=== PATIENT | female | born 1970 | race Caucasian/White ===

== ENCOUNTER 2023-02-23 07:11 | Outpatient (CLI) | payer OTHER, SELFPAY ==
--- NOTE | 2023-02-23 07:27 | W.ANESCHARGE ---
Anesthesia Charges Start Date/Time Anesthesia Start Date: 02/23/23 Anesthesia Start Time: 08:28 Stop Date/Time Anesthesia Stop Date: 02/23/23 Anesthesia Stop Time: 08:55
--- NOTE | 2023-02-23 08:59 | W.ANESCHARGE ---
Anesthesia Charges Start Date/Time Anesthesia Start Date: 02/23/23 Anesthesia Start Time: 08:28 Stop Date/Time Anesthesia Stop Date: 02/23/23 Anesthesia Stop Time: 08:55
== END 2023-02-23 07:12 | disposition home or self-care (01) ==
LOC: OP CLINIC 07:12
PROVIDERS: PCP Internal Medicine; Visit Provider Surgery
DX: Z12.11 Encounter for screening for malignant neoplasm of colon (principal); K63.5 Polyp of colon; Z80.0 Family history of malignant neoplasm of digestive organs
CPT/HCPCS: 00811; 45385; 88305; J2704

== ENCOUNTER 2023-04-13 14:26 | Outpatient (CLI) | payer OTHER, SELFPAY ==
--- NOTE | 2023-04-13 14:00 | CRLHL7_ITS ---
For Patients: As a result of the Century Cures Act, medical imaging exams and procedure reports are released immediately into your electronic medical record. You may view this report before your referring provider. If you have questions, please contact your health care provider. BILATERAL SCREENING MAMMOGRAM WITH COMPUTER-AIDED DETECTION AND TOMOSYNTHESIS TECHNIQUE: CC and MLO views were obtained. These mammographic images have been obtained using full-field digital technique. These mammographic images were interpreted with the benefit of computer-aided detection. Breast Tomosynthesis was used in this interpretation. COMPARISON FILM: 04/02/22, 11/13/20, 03/29/19. FINDINGS: The breasts are heterogeneously dense, which may obscure small masses IMPRESSION: There is no radiographic evidence for malignancy. ASSESSMENT: BI-RADS Category 1: Negative RECOMMENDATION: Routine screening mammogram in 1 year. A lay language report of this examination will be provided to the patient. Mike Prabhakar M.D. Diagnostic Radiologist [email or web address] NOVA/Dictated by: Mike Prabhakar MD @ 04/15/2023 12:32:00 PM (Electronically Signed)
== END 2023-04-13 14:27 | disposition home or self-care (01) ==
PROVIDERS: PCP Internal Medicine; Visit Provider Internal Medicine
DX: Z12.31 Encounter for screening mammogram for malignant neoplasm of breast (principal); R92.2 Inconclusive mammogram
CPT/HCPCS: 77063; 77067

== ENCOUNTER 2024-12-05 12:10 | Outpatient (CLI) | payer OTHER, SELFPAY ==
--- NOTE | 2024-12-05 12:00 | CRLHL7_ITS ---
For Patients: As a result of the Century Cures Act, medical imaging exams and procedure reports are released immediately into your electronic medical record. You may view this report before your referring provider. If you have questions, please contact your health care provider. INDICATION: BILATERAL SCREENING MAMMOGRAM, ASYMPTOMATIC 54 Y/O FEMALE COMPARISON: 04/13/2023, 04/02/2022, 11/13/2020 TECHNIQUE: Digital mammogram in CC and MLO projections including computer-aided detection (CAD) and tomosynthesis. BREAST COMPOSITION: The breasts are heterogeneously dense, which may obscure small masses. FINDINGS: No suspicious findings. ASSESSMENT: BI-RADS 1 Negative RECOMMENDATION: Annual screening mammogram. A lay language report of this examination will be provided to the patient. Dictated by: Mike Prabhakar MD @ 12/05/2024 12:53:13 (Electronically Signed)
--- OUTSIDE RECORDS SUMMARY | 2024-12-06 00:50 | XMS_ITS | Clinical Summary ---
[facility] Address [address] [address] Care Team Providers Care Museum Exhibit Designer Name Role Phone Janette Lowe MD Primary Care Provider [phone] Source Comments You are receiving this document as you are listed as the primary care provider,follow-up provider, or the patient has been referred to you for consultation.This is in compliance with the Medicare and[facility] EHR Incentive Program,which states Providers who transition their patient to another setting of careor provider of care or refers their patient to another provider of care shouldprovide summary care record for each transition of care or referral. [facility] Allergies Active Allergy Reactions Criticality Noted Date Comments Bee Venom Angioedema High 02/15/2024 Medications EPINEPHrine (EPIPEN) 0.3 MG/0.3ML injection Inject 0.3 mL (0.3 mg) intramuscularly as needed. May repeat. 2 Each 11 02/15/2024 6:22 PM CDT 02/15/20 24 Active Social History Tobacco Use Types Packs/Day Years Used Date Smoking Tobacco: Never Assessed Comments Unknown Sex and Gender Information Value Date Recorded Sex Assigned at Not on file Legal Sex Female 12:58 PM CDT Gender Identity Not on file Sexual Orientation Not on file Last Filed Vital Signs Vital Sign Reading Time Taken Comments Blood Pressure 110/75 02/15/2024 6:05 PM CDT Pulse 73 02/15/2024 6:03 PM CDT Temperature 36.7 C (98 F) 02/15/2024 1:08 PM CDT Respiratory Rate 16 02/15/2024 1:08 PM CDT Oxygen Saturation 99% 02/15/2024 6:03 PM CDT Inhaled Oxygen Concentration - - Weight - - Height - - Body Mass Index - - Plan of Treatment Health Maintenance Due Date Last Done Comments Cervical Cancer Screening Due 1970 Colon Cancer Screening Plan Due 1970 Hep C Screening (Preventive Services) 1969 HIV Screening (Preventive Services) 1985 Adult Preventive Visit 09/15/1987 HepB Vaccine (1) 1988 Cholesterol 2014 Pneumococcal Vaccine 50+ Yrs (1 of 1 - PCV) 09/15/2019 Mammogram 04/02/2023 04/02/2022, 06/0 07/2020, 03/29/2019, Additional history exists COVID-19 Vaccine ( season) 2024 05/27/2021, 06/24/2020, 06/03/2020 Influenza Vaccine (Season Ended) 2025 03/26/2021, 03/28/2020, 04/11/2019, Additional history exists DTaP/Tdap/Td Vaccine (6 - Tdap) 11/20/2031 11/19/2021, 03/29/2017, 01/12/2007, Additional history exists Zoster/Shingles Vaccine Completed 04/09/2020, 01/22 HepA Vaccine Aged Out No longer eligi ble based on patient's age to complete this topic Hib Vaccine Aged Out No longer eligi ble based on patient's age to complete this topic IPV (Polio) Vaccine Aged Out No longe r eligible based on patient's age to complete this topic MCV4 Vaccine Aged Out No longer eligi ble based on patient's age to complete this topic Meningococcal B Vaccine Aged Out No l onger eligible based on patient's age to complete this topic Insurance [facility] [place] [id number] Care Teams Museum Exhibit Designer Relationship Specialty Start Date End Date Janette Lowe MD [address] [facility] [place] [address] PCP - General Internal Medicine 02/15/24
--- OUTSIDE RECORDS SUMMARY | 2024-12-06 00:51 | XMS_ITS | Clinical Summary ---
Author Organization [employer] [facility] Address [address] [place] [address] Care Team Providers Care Well Driller Name Role Phone Janette Cain MD Primary Care Prov ider Allergies Active Allergy Reactions Criticality Noted Date Comments Pollen Extracts Itching,Cough,Other - Describe In Comment Field 07/21/2019 And cough And cough And cough And cough Medications multivitamin (MVI) tabletIndicati ons:vitamin deficiency prevention Take 1 tablet by mouth once daily. Indications: Vitamin Deficiency Prevention Active scopolamine 1mg over 3 days (TRANSDERM SCOP) patch Apply 1 Patch on dry, clean, hairless skin every 3 days if needed for nausea. 4 Patch 2 08/04/2018 1:24 PM JAVA GOLDEN GATE DEVELOPER 9 Active oxyCODONE-acet aminophen, 5-325 mg, (PERCOCET) 5-325 mg per tabletIndicati ons:Traumatic complete tear of right rotator cuff, initial encounter Take 1 to 2 tablets by mouth every 4 hours if needed for Pain. Max acetaminophen dose: 4000mg in 24 hrs. 42 tablet 08/16/2019 2:55 PM JAVA GOLDEN GATE DEVELOPER 0 Active triamcinolone (ARISTOCORT; KENALOG) 0.1 % cream Apply 1 application topically 2 (two) times a day as needed (Rash). For posterior neck 60 g 10/24/2020 1:35 PM CDT 1 Active progesterone micronized (PROMETRIUM) 200 mg capsule Take 1 capsule (200 mg total) by mouth at bedtime for 10 day per cycle starting on day 20 of each cycle 30 Capsule 3 05/13/2021 11:43 AM JAVA GOLDEN GATE DEVELOPER 1 Active azithromycin (ZITHROMAX) 250 mg tablet Take 500 mg (2 tablets) by mouth the first day then 250 mg (1 tablet) by mouth for 4 more days. 6 Tablet 10/02/2021 12:49 PM CDT 2 Active benzonatate (TESSALON) 200 mg capsule Take 1 capsule (200 mg total) by mouth 3 (three) times a day as needed for cough for up to 7 days. 20 Capsule 10/02/2021 12:49 PM CDT 2 Active triamcinolone (ARISTOCORT; KENALOG) 0.1 % cream Apply 1 application topically 2 (two) times a day as needed (Rash). For posterior neck 80 g 3 2 Active methylPREDNISo lone (MEDROL DOSEPAK) 4 mg tablet Follow package directions. 21 Tablet 01/07/2022 2:19 PM CDT 2 Active Immunizations Immunization Administration Dates Next Due COVID-19 vaccine ([employer] 30mcg/0.3mL) PF, MDV 06/24/2020,06/03/2020 Hepatitis B (Adult) 10/22/2008,03/17/2008,2007 Influenza, IIV3 (Age >=3 years) 03/04/2011 Tdap 11/19/2021,12/30/2006 Family History Medical History Relation Name Comments Allergies Father HAYFEVER Cancer Father LUNG AND BRAIN Hypertension Father Cancer Maternal Grandmother CERVICA L Cancer Mother LEUKEMIA Cancer-colon Mother Heart Disease Mother MITRAL VALVE R EPLACEMENT Seizures Mother Stroke Mother Cancer Paternal Aunt BLADDER CANCER Relation Name Status Comments Brother Alive X2 Father Maternal Grandfather Maternal Grandmother Mother Paternal Aunt Paternal Grandfather Paternal Grandmother Son Alive Social History Tobacco Use Types Packs/Day Years Used Date Smoking Tobacco: Former Cigarettes Q uit: 04/14/2004 Smokeless Tobacco: Never Alcohol Use Standard Drinks/Week Comments Yes 0 (1 standard drink = 0.6 oz pur e alcohol) social 2 per week Comments No Sex and Gender Information Value Date Recorded Sex Assigned at Not on file Legal Sex Female 7:07 AM JAVA GOLDEN GATE DEVELOPER Gender Identity Not on file Sexual Orientation Not on file 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 Not on file Not on file Not on file Obstetrics History Last Filed Vital Signs Vital Sign Reading Time Taken Comments Blood Pressure 121/76 11/19/2021 9:31 PM CDT Pulse 96 11/19/2021 9:31 PM CDT Temperature 36.8 C (98.2 F) 11/19/2021 9:31 PM CDT Respiratory Rate 18 11/19/2021 9:31 PM CDT Oxygen Saturation 100% 11/19/2021 9:31 PM CDT Inhaled Oxygen Concentration - - Weight 77.8 kg (171 lb 8 oz) 11/19/2021 9:31 PM CDT Height 167.6 cm (5' 6) 11/19/2021 9:31 PM CDT Body Mass Index 27.68 11/19/2021 9:31 PM CDT Plan of Treatment Health Maintenance Due Date Last Done Comments Depression screening for age 12+ 1981 HIV for age 15-65 1984 Hepatitis C screening for age 18-79 09/15/1987 Hepatitis B series for 19+ ( 3 of 3 - 19+ 3-dose series) 12/17/2008 10/22/2008, 03/17/2008, 03/15/2008 Pap test for age 21-65 08/18/2009 7, 05/16/2004, 05/16/2004 Lipids for age 45-75 2014 Mammogram for age 45-75 2014 BMI (ht and wt on same day) for age 18+ 03/29/2018 03/29/2017 Pneumococcal series for age 50+ (1 of 1 - PCV) 09/15/2019 Zoster (shingles) series for age 50+ (1 of 2) 09/15/2019 COVID-19 vaccine series (2023- season) 2024 05/27/2021, 06/24/2020, 06/03/2020 Influenza Vaccine (Season Ended) 2025 03/04/20 11 Colonoscopy through age 75 04/20/2027 04/20/2017 Tetanus booster 11/20/2031 11/19/2021, 12/30/2006 Tdap Completed 11/19/2021, 12/30/2006 Medical Devices Implanted Type Area Tool Mechanic Device Identifier Shelf Expiration Date Model / Serial / Lot Ancr Sut 4.75x19.1mm Valentina Nune[employer] - [id number] Implanted:Qty: 4 on 07/31/2019 by Mike Love MD at [facility] Ortho Implants, Misc. Right: Shoulder [employer] 04/13/2021 [id number] S-4# / / [id number] Description:Each kit contain s 4 anchors, four of the four anchors from the one kit opened, implanted. Procedures Procedure Name Priority Date/Time Associated Diagnosis Comments COLONOSCOPY 04/20/2017 8:45 AM JAVA GOLDEN GATE DEVELOPER SHIPS EQUIPMENT ENGINEER THIN PREP PAP SCREEN IMAGED Routine 08/18/2006 10:36 AM JAVA GOLDEN GATE DEVELOPER Screening Malignant Neoplasms Cervix from Last 3 Months or Most Recently Relevant to Health Maintenance Results * COLONOSCOPY (04/20/2017 8:45 AM JAVA GOLDEN GATE DEVELOPER) 04/20/2017 8:4 5 AM JAVA GOLDEN GATE DEVELOPER Narrative Transcriptions FromBethel lu MD - 04/20/2017 9:13 AM CST Patient Name: Wilda Fuller Procedure Date: 04/20/2017 Gender: Female Date of : 1970 Admit Type: Ambulatory Procedure: Colonoscopy Proceduralist: Freddy Hercules [facility] Referring MD: Trang Irvin Indications/Pre-Op Diagnosis: Screening in patient at increased risk:Family history of 1st-degree relative withcolorectal cancer before age 60 years Medications: Propofol per Anesthesia Procedure Description: The procedure, indications, potential complications, (bleeding, perforation, infection, adverse medication reaction, missed lesionsor polyps) and alternatives available were explained to the patient, who appeared to understand and indicated this. Opportunity for questionswas provided and informed consent obtained. The colonoscope was passed through the anus and advanced to thececum, identified by appendiceal orifice and ileocecal valve. Thecolonoscopy was performed with ease. The patient tolerated the procedure well.The quality of the bowel preparation was excellent. Complications: No immediate complications. Estimated Blood Loss & Specimen: Estimated blood loss: none. Specimen collected: None Findings: The perianal and digital rectal examinations were normal. Pertinent negatives include normal sphincter tone. The terminal ileum appeared normal. A few small-mouthed diverticula were found in the sigmoid colon. The exam was otherwise without abnormality. No additional abnormalities were found on retroflexion. Impressions/Post-Op Diagnosis: - The examined portion of the ileum was normal. - Diverticulosis in the sigmoid colon. - The examination was otherwise normal. - No specimens collected. Recommendation: - Repeat colonoscopy in 5 years for surveillance. Moderate Sedation: Deep sedation per anesthesia. Freddy Hercules, 04/20/2017 9:13:38 AM This report has been signed electronically. Note Initiated On: 04/20/2017 8:45 AM us Bethel Hercules MD PROCEDURE ORD Final Resu lt * SHIPS EQUIPMENT ENGINEER THIN PREP PAP SCREEN IMAGED (08/18/2006 10:36 AM JAVA GOLDEN GATE DEVELOPER) CYTOLOGY CYTOPATHOLOGY REPORT [facility] Status: Final Report [id number] CLINICAL INFORMATION LMP : 08-02-06 Previous Pap Date : 05-16-04 Previous PAP Dx : Negative for intraepithelial lesion or malignancy. Previous Chocowinity/bx date : None Previous Colposcopy/Bx: None Hormone Usage : None Menstrual Status : Regular Periods Appearance of Cervix : NL Chocowinity/Bx done today : No HPV Request : Reflex HPV test if PAP Dx ASCUS SPECIMEN SOURCE : Cervical/vaginal ThinPrep Vial, screening SPECIMEN ADEQUACY : Satisfactory for evaluation Endocervical component present. INTERPRETATION/RES ULT: Negative for intraepithelial lesion or malignancy. Cytology 1st Screener : brandi Cytology 2nd Screener : [email or web address] Signed by: wilton This specimen was screened by the FDA approved ThinPrep Imaging System and manually reviewed. NOTE: The Pap test is a screening technique, not a diagnostic procedure. It is used primarily to screen for squamous cancers and precursor lesions. Published studies have shown that it is subject to both false negative and false positive results. The pap test should not be used as the sole means to diagnose or exclude pre-malignant and malignant lesions. COLLECTED: 08/18/06 ACCESSIONED: 08/18/06 SIGNED: 08/23/06 [facility] Cervical (Cervical) 08/18/2006 10:36 AM JAVA GOLDEN GATE DEVELOPER 08/18/2006 10:30 AM JAVA GOLDEN GATE DEVELOPER Marie Vines MD PATHOLOGY/CYTOLOGY Final R esult [facility] [place]NAL ZIP [address] [address] from Last 3 Months or Most Recently Relevant to Health Maintenance Advance Directives * Full Code (Latest Code Status on File) Date Activated Date Inactivated Comments 04/28/2011 8:20 PM 04/30/2011 2:27 AM Care Teams Well Driller Relationship Specialty Start Date End Date Janette Cain MD [address] [address] PCP - General Family Practice 04/27/11
--- OUTSIDE RECORDS SUMMARY | 2024-12-06 00:51 | XMS_ITS | Clinical Summary ---
Author Organization [facility] Address [address] [place] [address] Care Team Providers Care Marking Room Supervisor Name Role Phone Unavailable Primary Care Provider Unavailabl e Source Comments Patient records contain information from all sites at [facility]. For routine questions regarding patient records, call [phone] during business hours, M-F 8:00 AM - 5:00 PM Central Time. Record requests for emergency care only can be directed to [phone] at any time.[facility] Allergies Active Allergy Reactions Criticality Noted Date Comments Pollen Extracts Itching,Cough 07/21/2019 And cough Venom-Honey Bee Angioedema High 02/15/2024 Medications multivitamin tablet Take 1 capsule by mouth daily. 03/23/20 13 Active EPINEPHrine 0.3 mg/0.3 mL injection syringe Inject 0.3 mg intramuscularly as needed. 02/15/20 24 Active Active Problems Problem Noted Date Diagnosed Date Cancer Skin Basal Cell Personal History 09/30/19 17 Melanoma Of Skin Cancer Personal History 012 Melanoma Upper Arm 09/22/2011 Melanoma Upper Limb 09/11/2011 Overview (11/03/2016): Malignant melanoma of arm Resolved Problems Problem Noted Date Diagnosed Date Resolved Date Pain Shoulder Right 06/22/2019 01/23/20 20 Tumor Skin Uncertain Behavior 09/29/2016 01/23/2020 Keratosis Seborrheic 04/02/2016 020 Lymphedema Secondary 09/20/2015 020 Malignant Neoplasm Of Skin B kristina Cell Carcinoma 11/17/2013 01/23/2020 Screening Cancer Colon 11/12/201301/22 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 Screening Examination Skin Cancer (Primary Dx); Personal History Of Malignant Melanoma Of Skin; Cancer Skin Basal Cell Personal History; Photodamage 10/16/2024 7:00 AM CDT Clinical Communication Virtual Review in [place], [place] [address] [place] [address] Pre-visit Intake from Last 3 Months Immunizations Immunization Administration Dates Next Due DTaP (Infanrix, Tripedia) 12/30/2006 HepB Adult 10/22/2008,05/17/2008,03/15/2008 Influenza Split 03/14/2013,03/21/2012,05/18/2003 Influenza, Unspecified 03/23/2017,2015,03/11/2015,2013,03/16/2013,03/03/2012,03/04/2011 RZV (SHINGRIX) 04/09/2020,01/23/2020 Td, (Adult) Unspecified 01/12/2007 Tdap 11/19/2021,03/29/2017 influenza trivalent vaccine (6 months and older)(PF) 03/14/2019 influenza vaccine quad (FLUZONE/FLUARIX) (6 months and older)(PF) 03/26/2021,03/28/2020,04/11/2019 Family History Medical History Relation Name Comments Hyperlipidemia Brother 1 Ren Hypertension Brother 1 Ren Hyperlipidemia Brother 2 Urbano Skin cancer Brother 2 Urbano basal cell Hyperlipidemia Brother 3 Urbano Skin cancer Brother 3 Urbano basal cell Lung cancer Father Urbano Colon cancer Mother Abby Leukemia Mother Abby Mitral valve disorder Mother Abby Stroke Mother Abby Stroke X2 Mother Abby After surgery Relation Name Status Comments Brother 1 Ren Brother 2 Urbano Brother 3 Urbano Alive Father Urbano Mora Social History Tobacco Use Types Packs/Day Years Used Date Smoking Tobacco: Former Cigarettes 0.3 14 0 06/14/1988 - 06/14/2002 Smokeless Tobacco: Never Tobacco Cessation:Counseling Given: Not Answered Alcohol Use Standard Drinks/Week Comments Yes 6 (1 standard drink = 0.6 oz pur e alcohol) [facility] Utilities Answer Date Recorded In the past 12 months has e [employer], gas, oil, or water [employer] threatened to shut off services in your home? No 10/11/2024 Humiliation, Afraid, Rape, and Kick questionnair e Answer Date Recorded Within the last year, have y ou been afraid of your partner or ex-partner? No 10/06/2022 Within the last year, have y ou been humiliated or emotionally abused in other ways by your partner or ex-partner? No Within the last year, have y ou been kicked, hit, slapped, or otherwise physically hurt by your partner or ex-partner? No 10/06/2022 Within the last year, have y ou been raped or forced to have any kind of sexual activity by your partner or ex-partner? No 10/06/2022 Hunger Vital Sign Answer Date Recorded Within the past 12 months, y ou worried that your food would run out before you got the money to buy more. Never true 10/12/19 Within the past 12 months, t he food you bought just didn't last and you didn't have money to get more. Never true 10/11/2024 PRAPARE - Transportation Answer Date Re corded In the past 12 months, has l ack of transportation kept you from medical appointments or from getting medications? No 09/14 In the past 12 months, has l ack of transportation kept you from meetings, work, or from getting things needed for daily living? No 10/11/2024 Housing Stability Answer Date Recorded What is your living situation today? I have a [facility] to live 10/11/2024 Education Answer Date Recorded What is the highest level of school you have completed or the highest degree you have received? Associate degree: academic program 10/06/2022 Comments Unknown Sex and Gender Information Value Date Recorded Sex Assigned at Female 04/07/2018 9:04 PM CDT Legal Sex Female 4:33 AM PLASTIC WORKER Gender Identity Female 04/07/2018 9:04 PM CDT Sexual Orientation Straight 04/07/2018 9: 04 PM CDT Last Filed Vital Signs Vital Sign Reading Time Taken Comments Blood Pressure 114/78 01/07/2022 1:26 PM CDT Pulse 66 01/07/2022 1:26 PM CDT Temperature 36 C (96.8 F) 01/07/2022 1:26 PM CDT Respiratory Rate 16 01/29/2021 12:30 PM CDT Oxygen Saturation 99% 10/02/2021 11:25 AM CDT Inhaled Oxygen Concentration - - Weight 79.1 kg (174 lb 6.1 oz) 01/07/2022 1:26 P M CDT Height 168.7 cm (5' 6.42) 04/17/2021 10:45 AM C DT Body Mass Index 27.79 04/17/2021 10:45 AM CDT Plan of Treatment Health Maintenance Due Date Last Done Comments CT Colonography 1969 Cologuard 1969 Pneumococcal vaccine (50+ years) (1 of 1 - PCV) 09/15/2019 Colonoscopy 04/20/2022 04/20/2017, 04/29/2011 Colorectal Cancer Surveillance 04/20/2022 Mammogram 04/02/2023 04/02/2022, 06/0 07/2020, 03/29/2019, Additional history exists Fasting Glucose for Diabetes Screening 05/17/2023 05/17/2020, 01/28/2016, 04/11/2013, Additional history exists COVID-19 Vaccine ( season) 2024 05/27/2021, 06/24/2020, 06/03/2020 Influenza Vaccine (#1) 2024 3, 03/26/2021, 03/28/2020, Additional history exists Depression Screening (Annual PHQ-2) 06/14/2024 Cervical/Vaginal Cancer Screening 01/22/2025 01/23/2020, 01/23/2020, 03/29/2017, Additional history exists Lipid (Cholesterol) Screening 05/17/2025 05/17/2020, 01/28/2016 HIV Screening 01/22/2030 Postponed from 1969 (Provider recommendation) Hepatitis C Screening 04/17/2031 Postpo gonzalo from 1969 (Provider recommendation) DTaP,Tdap,and Td Vaccines (5 - Td or Tdap) 11/20/2031 11/19/2021, 03/29/2017, 01/12/2007, Additional history exists Hepatitis B Vaccines Completed 10/22/2008, 05/17/2008, 03/15/2008 Zoster Vaccines Completed 04/09/2020, 01/23/2020 IPV Vaccines Aged Out No longer eligi ble based on patient's age to complete this topic Procedures Procedure Name Priority Date/Time Associated Diagnosis Comments BI BREAST SCREENING BILATERAL WITH TOMOSYNTHESIS RAD - Routine (most inpatients and all outpatients) 04/02/2022 12:05 PM CDT Screening Mammogram Breast Cancer GLUCOSE, FASTING, S/P Routine 05/17/2020 7:33 AM PLASTIC WORKER Health Maintenance Examination Adult LIPID PANEL, S Routine 05/17/2020 7:33 AM PLASTIC WORKER Health Maintenance Examination Adult THINPREP W/HPV CO-TEST SCREEN Routine 01/23/2020 4:53 PM CDT Health Maintenance Examination Adult from Last 3 Months or Most Recently Relevant to Health Maintenance Results * BI Breast Screening Bilateral with Tomosynthesis (04/02/2022 12:05 PM CDT) Anatomical Region Laterality Modality Breast, Breast Imaging RST L OS, Breast Imaging ARZ LOS, Breast Imaging FLA LOS Bilateral Mammography 04/02/2022 12:1 9 PM CDT Impressions 04/02/2022 12:21 PM CDT Negative. RECOMMENDATION: Annual Screening Mammogram ASSESSMENT: BI-RADS: 1: Negative. Narrative 04/02/2022 12:21 PM CDT EXAM: BI BREAST SCREENING BILATERAL WITH TOMOSYNTHESIS Current study was evaluated with a Computer Aided Detection (CAD) system. INDICATION: Screening mammogram. COMPARISON: Prior exam(s) were available and reviewed for comparison. DENSITY: d. The breast(s) are extremely dense, which lowers the sensitivity of mammography. FINDINGS: No mammographic findings of malignancy. Procedure Note Deep Baker M.D. - 04/02/2022 EXAM: BI BREAST SCREENING BILATERAL WITH TOMOSYNTHESIS Current study was evaluated with a Computer Aided Detection (CAD) system. INDICATION: Screening mammogram. COMPARISON: Prior exam(s) were available and reviewed for comparison. DENSITY: d. The breast(s) are extremely dense, which lowers thesensitivity of mammography. FINDINGS: No mammographic findings of malignancy. IMPRESSION: Negative. RECOMMENDATION: Annual Screening Mammogram ASSESSMENT: BI-RADS: 1: Negative. us Janette Cain M.D. IMG BI PROCEDURES Final R esult * Lipid Panel (05/17/2020 7:33 AM PLASTIC WORKER) Cholesterol, Total 162 mg/dL 2019 9:00 AM PLASTIC WORKER OWAT Comment: ----REFERENCE VALUE---- Desirable: < 200 Borderline high: 200 - 239 High: > or = 240 Triglycerides 55 mg/dL 05/17/2020 9:00 AM PLASTIC WORKER OWAT Comment: ----REFERENCE VALUE---- Normal: <150 Borderline high: 150-199 High: 200-499 Very high: > or =500 Cholesterol, HDL 50 >=50 mg/dL 05/17/20 9:00 AM PLASTIC WORKER OWAT Calculated LDL 101 mg/dL 05/17/2020 9:00 AM PLASTIC WORKER OWAT Comment: ----REFERENCE VALUE---- Desirable: <100 Above Desirable: 100-129 Borderline high: 130-159 High: 160-189 Very high: > or =190 Cholesterol, Non-HDL, Calculated 112 mg/dL 05/17/2020 9:00 AM PLASTIC WORKER OWAT Comment: ----REFERENCE VALUE---- Desirable: <130 Above Desirable: 130-159 Borderline high: 160-189 High: 190-219 Very high: > or =220 Blood (Blood, Venous) 05/17/2020 7:33 AM PLASTIC WORKER 05/17/2020 7:49 AM PLASTIC WORKER us Janette Cain M.D. LAB BLOOD ADD-ON Final Re sult Performing Organization Address [facility]/ZIP Co de Phone Number [facility] [address] [place] [address], [place] OWAT [facility] [place] [address] [place] [address] * Glucose, Fasting (05/17/2020 7:33 AM PLASTIC WORKER) Glucose, P 84 70 - 100 mg/dL 05/17/2020 8:37 AM PLASTIC WORKER OWAT Last Intake 14 hr 05/17/2020 7:49 AM PLASTIC WORKER OWAT Blood (Blood, Venous) 05/17/2020 7:33 AM PLASTIC WORKER 05/17/2020 7:49 AM PLASTIC WORKER us Janette Cain M.D. LAB BLOOD NON ADD-ON She l Result Performing Organization Address [facility] Co de Phone Number [facility] [address] [address], [place] [facility] [place] [address] [place] [id number] * ThinPrep w/HPV Co-Test Screen (01/23/2020 4:53 PM CDT) 01/26/2020 12:11 PM CDT [facility] Report electronically signed by YEISON Brown (ASCP) I verify that I have examined all relevant slides/materials for the specimen(s) and rendered or confirmed the diagnosis. 01/26/2020 12:11 PM CDT [facility] Gross Description Received specimen in a ThinPrep vial. 01/26/2020 12:11 PM CDT [facility] Pap Test Source Cervical/Endocervi raffy 01/26/2020 12:11 PM CDT [facility] Clinical History well woman 01/26/20 12:11 PM CDT [facility] Menstrual Status(LMP, PM, ) 01/18/20 01/26/2020 12:11 PM CDT [facility] Hormone Therapy/Contracep tives None/Not known 01/26/2020 12:11 PM CDT [facility] Interpretation Cervical/Endocervi raffy (ThinPrep): Satisfactory for Evaluation Negative for Intraepithelial Lesion or Malignancy High Risk HPV: Negative Negative for High Risk HPV by nucleic acid amplification. The following High Risk HPV types were not detected: 16, 18, 31, 33, 35, 39, 45, 51, 52, 56, 58, 59, 66, and 68. 01/26/2020 12:11 PM CDT [facility] Varies (Cervix/Endocerv ix) 01/23/2020 4:53 PM CDT 01/24/2020 6:56 AM CDT us Janette Cain M.D. LAB PAP PATHDX ORDERABLES Final Result Performing Organization Address City/State/[facility] de Phone Number [facility] [address] [place] [address], [facility] [address] [place] [address] from Last 3 Months or Most Recently Relevant to Health Maintenance Insurance [facility] Care Teams Marking Room Supervisor Relationship Specialty Start Date End Date Janette Lowe MD, FACP External Primary Care Physician Family Medicine 10/01/23
--- OUTSIDE RECORDS SUMMARY | 2024-12-06 00:51 | XMS_ITS | Encounter Summary ---
Author Organization [facility] Address [address] [place] [address] Care Team Providers Care Basting Machine Operator Name Role Phone Unavailable Primary Care Provider Unavailabl e Encounter Details Date Type Department Care Team (Late st Contact Info) Description 10/16/2014 Historical Ophthalmology [facility] Aries Chavez Jr., M.D. [address] [phone] Social History Tobacco Use Types Packs/Day Years Used Date Smoking Tobacco: Never Assessed Comments Unknown Sex and Gender Information Value Date Recorded Sex Assigned at Female 04/07/2018 9:04 PM CDT Legal Sex Female 4:33 AM SEMICONDUCTOR EQUIPMENT TECHNICIAN Gender Identity Female 04/07/2018 9:04 PM CDT Sexual Orientation Straight 04/07/2018 9: 04 PM CDT documented as of this encounter Progress Notes * Aries Chavez M.D. - 10/16/2014 2:06 PM CDT Eye General CHIEF COMPLAINT Complete Exam HISTORY OF PRESENT ILLNESS Pt states that the near print has been harder to see. Distance vision stable. ROS good general health- heart and lungs WNL IMPRESSION / REPORT / PLAN A) Presbyopia P) RTO 1 year, try readers, MVI CDM Reports - EYEGEN Id: [id number] Status: Fnl documented in this encounter Plan of Treatment Not on file documented as of this encounter Visit Diagnoses Not on filedocumented in this encounter Additional Health Concerns Assessment Noted Time PHQ-9 Depression Total Score: 0 09/27/19 13 2:25 PM CDT documented as of this encounter Care Teams Basting Machine Operator Relationship Specialty Start Date End Date Janette Lowe MD, FACP External Primary Care Physician Family Medicine 10/01/23 documented as of this encounter
== END 2024-12-05 12:11 | disposition home or self-care (01) ==
LOC: MAMMO 12:11
PROVIDERS: PCP Internal Medicine; Visit Provider Internal Medicine
DX: Z12.31 Encounter for screening mammogram for malignant neoplasm of breast (principal); R92.333 Mammographic heterogeneous density, bilateral breasts
CPT/HCPCS: 77063; 77067